=== PATIENT | male | born 1955 | race Caucasian/White ===

== ENCOUNTER 2017-08-14 07:17 | Day surgery (SDC) | payer BC ==
[~2017-08-14 07:17] MED LIST: Lactated Ringers 1,000 ML IV SCH
[2017-08-14] MEDS ORDERED: Ondansetron 4 MG/2 ML SDV ONE (07:38)
[2017-08-14] MEDS ORDERED: Midazolam 1 MG/ML 2 ML SDV ONE (07:39)
[2017-08-14] MEDS ORDERED: Propofol 200 MG/20 ML SDV ONE ×2 (07:39→09:37)
[2017-08-14] MEDS ORDERED: fentaNYL 100 MCG/2 ML SDV ONE (07:39)
--- NOTE | 2017-08-14 07:49 | PCM.PREANE ---
Preanesthetic Assessment - Anesthesia/Transfusion/Family Hx Anesthesia History: Prior Anesthesia Without Reaction Family History of Anesthesia Reaction: No Transfusion History: No Prior Transfusion(s) - Review of Systems General: No Symptoms Pulmonary: No Symptoms Cardiovascular: No Symptoms Gastrointestinal: No Symptoms Neurological: No Symptoms Other: Reports: None - Physical Assessment NPO Status Date: 08/13/17 O2 Sat by Pulse Oximetry: 96 Respiratory Rate: 16 Vital Signs: Last Vital Signs Temp 36.4 C 08/14/17 07:24 Pulse 77 08/14/17 07:24 Resp 16 08/14/17 07:24 BP 111/72 08/14/17 07:24 Pulse Ox 96 08/14/17 07:24 Height: 1.83 m Weight: 86.183 kg ASA Class: 2 Mental Status: Alert & Oriented x3 Airway Class: Mallampati = 1 Dentition: Reports: Normal Dentition ROM/Head Extension: Full Lungs: Clear to Auscultation, Normal Respiratory Effort Cardiovascular: Regular Rate, Regular Rhythm - Allergies Allergies/Adverse Reactions: Allergies Allergy/AdvReac Type Severity Reaction Status Date / Time No Known Allergies Allergy Verified 08/09/17 15:45 - Acknowledgements Anesthesia Type Planned: MAC Pt an Appropriate Candidate for the Planned Anesthesia: Yes Alternatives and Risks of Anesthesia Discussed w Pt/Guardian: Yes Pt/Guardian Understands and Agrees with Anesthesia Plan: Yes PreAnesthesia Questionnaire HEENT History: Reports: Hard of Hearing Gastrointestinal History: Reports: Colon Polyp Musculoskeletal History: Reports: Back Pain, Chronic, Fracture Other Musculoskeletal History: hx of fx arm Other Oncologic History: 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 [No Known Home Meds] 08/22/14 [History] - CURRENT (IN HOUSE) MEDS Current Meds: Current Medications Lactated Ringer's (Ringers, Lactated) 1,000 mls @ 125 mls/hr IV ASDIRECTED BACILIO Last Admin: 08/14/17 07:28 Dose: 125 mls/hr Discontinued Medications Fentanyl (Sublimaze) Confirm Administered Dose 100 mcg .ROUTE .STK-MED ONE Stop: 08/14/17 07:40 Lidocaine HCl (Xylocaine-Mpf 1%) Confirm Administered Dose 5 ml .ROUTE .STK-MED ONE Stop: 08/14/17 07:39 Midazolam HCl (Versed 1 Mg/Ml) Confirm Administered Dose 2 mg .ROUTE .STK-MED ONE Stop: 08/14/17 07:40 Ondansetron HCl (Zofran) Confirm Administered Dose 4 mg .ROUTE .STK-MED ONE Stop: 08/14/17 07:39 Propofol (Diprivan 20 Ml) Confirm Administered Dose 200 mg .ROUTE .STK-MED ONE Stop: 08/14/17 07:40
[2017-08-14] MEDS ORDERED: Glycopyrrolate 0.2 MG/ML SDV ONE (09:34)
[2017-08-14] MEDS ORDERED: Ondansetron 4 MG Tab.DIS PO PRN (10:08)
--- NOTE | 2017-08-14 10:09 | PCM.OPNOTE ---
- General Post-Op/Procedure Note Date of Surgery/Procedure: 08/14/17 Operative Procedure(s): Colonoscopy with cold rectal polypectomy Pre Op Diagnosis: Personal history of colon polyps Post-Op Diagnosis: Rectal polyps Anesthesia Technique: MAC (ASA II) Primary Surgeon: Sea Monique Technical Support Professional: Freeman Troncoso Condition: Good Free Text/Narrative:: DICTATION [id number] CPT CODE [id number]
[2017-08-14] MEDS ORDERED: Lactated Ringers 1,000 ML IV SCH (10:15)
--- NOTE | 2017-08-14 10:20 | PCM.POSTAN ---
POST ANESTHESIA ASSESSMENT - MENTAL STATUS Mental Status: Alert, Oriented - RESPIRATORY Respiratory Status: Respiratory Rate WNL, Airway Patent, O2 Saturation Stable - CARDIOVASCULAR CV Status: Pulse Rate WNL, Blood Pressure Stable - GASTROINTESTINAL GI Status: No Symptoms - POST OP HYDRATION Hydration Status: Adequate & Stable
--- NOTE | 2017-08-14 10:21 | PCM48HPAN ---
Post Anesthesia Note - EVALUATION WITHIN 48HRS OF ANESTHETIC Vital Signs in Normal Range: Yes Patient Participated in Evaluation: Yes Respiratory Function Stable: Yes Airway Patent: Yes Cardiovascular Function Stable: Yes Hydration Status Stable: Yes Pain Control Satisfactory: Yes Nausea and Vomiting Control Satisfactory: Yes Mental Status Recovered: Yes Resp Rate: 16
[2017-08-14 10:29] VITALS: BP 114/77
--- NOTE | 2017-08-15 08:50 | OR ---
SURGEON: Sea Monique M.D. DATE OF PROCEDURE: 08/14/2017 OPERATIONS PERFORMED: Colonoscopy with cold rectal polypectomy. DITCHER: Freeman Troncoso, PGY3 ANESTHESIA: MAC. [employer] CLASSIFICATION: II. PREOPERATIVE DIAGNOSIS: Personal history of colon polyps. POSTOPERATIVE DIAGNOSIS: Small rectal polyps. DESCRIPTION OF PROCEDURE: The patient was taken to the endoscopy room, positioned on the endoscopy table in the left lateral decubitus position. Time-out was called for appropriate identification of the patient and procedure. Monitored anesthesia care was provided. The colonoscope was inserted into the rectum and advanced with moderate difficulty to the cecum, where the colonoscope was retroflexed to visualize the ascending colon from below. The colonoscope was then straightened and slowly withdrawn. The cecum, ascending colon, hepatic flexure, transverse colon, splenic flexure, descending colon, and sigmoid colon showed no tumors, polyps, diverticula, or angiodysplastic changes. There was no evidence of inflammatory bowel disease. Several small polyps were encountered in the distal rectum and removed with the cold biopsy forceps. The colonoscope was then retroflexed to visualize the anal orifice from above. No tumors or polyps were seen and there were no acute hemorrhoidal changes. The colonoscope was then straightened, the rectum aspirated, and the colonoscope removed. The patient tolerated the procedure well and was taken to recovery room in stable condition. ANUSHKA SEVILLA /[id number]
== END 2017-08-14 10:42 | disposition home or self-care (01) ==
LOC: MW.SDS 07:17
PROVIDERS: ATTEND Surgery
DX: Z12.11 Encounter for screening for malignant neoplasm of colon (principal); K62.1 Rectal polyp; F17.210 Nicotine dependence, cigarettes, uncomplicated; Z86.010 Personal history of colon polyps; Z79.899 Other long term (current) drug therapy; Z85.828 Personal history of other malignant neoplasm of skin
CPT/HCPCS: 45380; J2250; J2405; J3010; J7120; 88305; J2704